=== PATIENT | female | born 1980 | race African-American/Black ===

== ENCOUNTER 2017-11-09 20:02 | Day surgery (SDC) | payer OTHER ==
--- NOTE | 2017-11-09 20:06 | PDOC ---
History of Present Illness - General Stated Complaint: 12 WEEKS BLEEDING Time Seen by Provider: 11/09/17 20:05 - History of Present Illness Initial Comments: 37 year old female [id number] presenting 12 weeks by LMP with vaginal bleeding and lower abdominal pain. States that she was spotting for the last few days and say her ObGyn who told her her it was expected but then she had sudden onset lower abdominal pain and began passing much more blood along with clots. Denies lightheadedness, syncope, chest pain, SOB, visual symptoms, or other complaints. 11/09/17 21:19 Past History - Past Medical History Allergies/Adverse Reactions: Allergies Allergy/AdvReac Type Severity Reaction Status Date / Time No Known Allergies Allergy Verified 05/14/15 00:52 Home Medications: Ambulatory Orders NK [No Known Home Medication] 05/14/15 - Immunization History Immunization Up to Date: Yes - Suicide/Smoking/Psychosocial Hx Smoking History: Current every day smoker Have you smoked in the past 12 months: Yes Number of Cigarettes Smoked Daily: 8 Hx Alcohol Use: No Drug/Substance Use Hx: No Substance Use Type: None Review of Systems - Review of Systems Constitutional: No: Chills, Diaphoresis, Fever, Loss of Appetite HEENTM: No: Blurred Vision, Recent change in vision Respiratory: No: Cough, Shortness of Breath, SOB with Exertion, Productive cough Cardiac (ROS): No: Chest Pain, Irregular Heart Rate, Lightheadedness, Syncope ABD/GI: No: Diarrhea, Nausea, Vomiting : No: Burning, Dysuria, Discharge Musculoskeletal: No: Back Pain, Joint Pain Integumentary: No: Dryness, Erythema, Lesions, Rash Neurological: No: Headache, Numbness Psychiatric: No: Anxiety, Depression Hematologic/Lymphatic: No: Anemia, Blood Clots, Easy Bleeding *Physical Exam - Physical Exam General Appearance: Yes: Nourished, Appropriately Dressed, Apparent Distress, Moderate Distress HEENT: positive: EOMI, BJ, Normal ENT Inspection, Normal Voice Neck: positive: Trachea midline, Normal Thyroid, Supple. negative: Tender, Rigid Respiratory/Chest: positive: Lungs Clear, Normal Breath Sounds. negative: Chest Tender, Respiratory Distress, Accessory Muscle Use Cardiovascular: positive: Regular Rhythm, Regular Rate Female Pelvic Exam: positive: cervical os closed, vaginal bleeding (Left adnexal tenderness, moderate vaginal bleeding, closed cervical os). negative: normal external exam, normal adnexa, CMT, discharge Gastrointestinal/Abdominal: positive: Normal Bowel Sounds, Flat, Soft. negative : Tender Musculoskeletal: positive: Normal Inspection. negative: Decreased Range of Motion Extremity: positive: Normal Capillary Refill, Normal Inspection, Normal Range of Motion. negative: Tender Integumentary: positive: Normal Color, Dry, Warm Neurologic: positive: Fully Oriented, Alert, Normal Mood/Affect, Normal Response , Motor Strength /5 ED Treatment Course - LABORATORY CBC & Chemistry Diagram: 11/09/17 20:10 11/09/17 20:10 Medical Decision Making - Medical Decision Making 37 year old female with vaginal bleeding in the setting of 12 w by lmp . Os closed on PE and patient with some moderate left adnexal tenderness. Labs all WNL with BHCG 2500. TVUS demonstrating 1.7 cm heterogeneous material thickening suspicious for retained products. THis overall likely represents spontaneous / miscarriage with questioanble retained POC. Dr. Zhang was consulted and she evaluated the patient, subsequently arranging for D&C. Patient VSS and set to go to OR [facility] possibly. 11/09/17 22:58 *DC/Admit/Observation/Transfer Diagnosis at time of Disposition: Retained products of conception, Spontaneous - Discharge Dispostion Decision to Admit order: Yes - Referrals - Patient Instructions - Post Discharge Activity
--- NOTE | 2017-11-09 20:06 | PDOC ---
Attending Attestation - HPI HPI: 11/09/17 21:15 The patient is a 37 year old female(), 12 weeks with no significant PMH who presents to the emergency department with vaginal bleeding for several days. The patient reports that she was seen at her Doctors offices 2 days ago secondary to experiencing some spotting. She states that she was using panty liners at that time. The patient states that she was at home today when she felt something pop like a possible water breakage. She states that she then experienced some clots expelled when she went to the bathroom. The patient endorses some severe pain with her symptoms. She denies any other symptoms. She denies any fever, chills, nausea, vomiting, diarrhea, constipation, or urinary symptoms. She denies any chest pain, shortness of breath, dizziness or weakness. The patient denies any other complaints. - Physicial Exam PE: 11/09/17 21:15 GENERAL: (+)tearful. Awake, alert, and fully oriented, in no acute distress HEAD: No signs of trauma EYES: PERRLA, EOMI, sclera anicteric, conjunctiva clear ENT: Auricles normal inspection, hearing grossly normal, nares patent, oropharynx clear without exudates. Moist mucosa NECK: Normal ROM, supple, no lymphadenopathy, JVD, or masses LUNGS: Breath sounds equal, clear to auscultation bilaterally. No wheezes, and no crackles HEART: Regular rate and rhythm, normal S1 and S2, no murmurs, rubs or gallops ABDOMEN: Soft, nontender, normoactive bowel sounds. No guarding, no rebound. No masses EXTREMITIES: Normal range of motion, no edema. No clubbing or cyanosis. No cords, erythema, or tenderness NEUROLOGICAL: Cranial nerves II through XII grossly intact. Normal speech, normal gait SKIN: Warm, Dry, normal turgor, no rashes or lesions noted. Pelvic:mild-moderate vaginal bleeding. Left adnexal tenderness with improvement after exam. Documentation prepared by Anoop Brennan, acting as certified court/medical interpreter for Kristel Hinojosa MD. <Anoop Brennan - Last Filed: 11/09/17 21:15> - Resident Resident Name: Roosevelt Beasley - ED Attending Attestation I have performed the following: I have examined & evaluated the patient, The case was reviewed & discussed with the resident, I agree w/resident's findings & plan - HPI HPI: 11/09/17 20:24 Pt comes with vag bleeding that began today; she had been spotting for several days and using a pantyliner. She is - Medical Decision Making 11/09/17 20:25 Pt will have T+S; labs; transvag sono. IVNSS and morphine for the pain. 11/09/17 21:12 Pt's labs are normal; pt's blood type is pending 11/09/17 22:12 Pt's sono shows blood vs products of conception in the uterus; heterogeneous material. We are still awaiting her CG quantitative. 11/09/17 22:13 Blood type A+ 11/09/17 22:45 hcg 2482; pt will be evaluated by the engineer conductor termite control service representative 11/09/17 23:02 Pt is gong to the OR for a D+C <Kristel Hinojosa - Last Filed: 11/09/17 23:02>
[2017-11-09 20:09] VITALS: BMI 33.7
[2017-11-09] MEDS ORDERED: MORPHINE SULFATE 2 MG/ML VIAL ONE ×2 (20:11→22:59)
[2017-11-09 20:21] LABS: BASO % 1.3 % (0-2.0); EOS % 1.5 % (0-4.5); HEMOGLOBIN 13.1 GM/dL (10.7-15.3); LYMPH % 34.1 % (8-40); MCH 32.4 pg (25.7-33.7); MCHC 34.6 g/dl (32.0-36.0); MEAN CELL VOLUME 93.7 fl (80-96); MEAN PLT VOLUME 7.3 fl (7.5-11.1); MONO % 7.9 % (3.8-10.2); NEUT % 55.2 % (42.8-82.8); PLATELET COUNT 320 K/MM3 (134-434); RBC 4.05 M/mm3 (3.60-5.2); RDW 13.2 % (11.6-15.6); WHITE BLOOD COUNT 10.3 K/mm3 (4.0-10.0)
[2017-11-09] MEDS ORDERED: SODIUM CHLORIDE 0.9% 500 ML INFUS.BAG IV ONE (20:25)
[2017-11-09] MEDS ORDERED: morphine CARPU-JECT 2 MG/1 ML DISP.SYRIN IVPUSH ONE ×2 (20:25→22:58)
[2017-11-09 20:34] LABS: INR 1.04 (0.83-1.09); PROTHROMBIN TIME (PATIENT) 11.7 SEC (9.7-13.0)
[2017-11-09 21:03] LABS: ALBUMIN 3.8 g/dl (3.4-5.0); ALK PHOS 57 U/L (45-117); ANION GAP 10 MMOL/L (8-16); BILIRUBIN,TOTAL 0.3 mg/dL (0.2-1); BLOOD UREA NITROGEN 12 mg/dL (7-18); CALCIUM 9.7 mg/dL (8.5-10.1); CHLORIDE 107 mmol/L (98-107); CO2 21 mmol/L (21-32); CREATININE 0.8 mg/dL (0.55-1.3); GLUCOSE,RANDOM 102 mg/dL (74-106); POTASSIUM 4.1 mmol/L (3.5-5.1); SGOT/AST 13 U/L (15-37); SGPT/ALT 25 U/L (13-61); SODIUM 138 mmol/L (136-145); TOT PROT 7.4 g/dl (6.4-8.2)
--- NOTE | 2017-11-09 23:53 | CON.OBG ---
Consult Consult Specialty:: GRAIN SHIPPER Reason for Consultation:: Vaginal bleeding - History of Present Illness Chief Complaint: Abdominal pain / Vaginal bleeding History of Present Illness: 37 yo Para 1 LMP 10/02/17, presents to ER c/o severe abdominal pain associated with vaginal bleeding. She had a sonogram done that failed to see a gestational sac but there was evidence of a thick endometrium. I came to see patient, she was in severe discomfort. She's was lying on a pad full of bright red blood. - History Source History Provided By: Patient Limitations to Obtaining History: No Limitations - Past Medical History ...LMP: 10/02/17 ...: Yes ...Para: 1 - Past Surgical History Past Surgical History: Yes: None - Alcohol/Substance Use Hx Alcohol Use: No - Smoking History Smoking history: Current every day smoker Have you smoked in the past 12 months: Yes Aproximately how many cigarettes per day: 8 Home Medications - Allergies Allergies/Adverse Reactions: Allergies Allergy/AdvReac Type Severity Reaction Status Date / Time No Known Allergies Allergy Verified 05/14/15 00:52 - Home Medications Home Medications: Ambulatory Orders NK [No Known Home Medication] 05/14/15 Family Disease History - Family Disease History Family History: Unremarkable Review of Systems - Review of Systems Eyes: reports: No Symptoms HENT: reports: No Symptoms Neck: reports: No Symptoms Cardiovascular: reports: No Symptoms Respiratory: reports: No Symptoms Gastrointestinal: reports: Abdominal Pain Genitourinary: reports: Pain, Vaginal Bleeding Breasts: reports: No Symptoms Reported Musculoskeletal: reports: No Symptoms Neurological: reports: No Symptoms Psychiatric: reports: No Symptoms Pain Intensity: 8 Physical Exam-GRAIN SHIPPER Vital Signs: Vital Signs Temperature 98.2 F 11/09/17 23:38 Pulse Rate 76 11/09/17 23:38 Respiratory Rate 18 11/09/17 23:38 Blood Pressure 109/65 11/09/17 23:38 O2 Sat by Pulse Oximetry (%) 98 11/09/17 23:38 Constitutional: Yes: Moderate Distress Eyes: Yes: Conjunctiva Clear HENT: Yes: Atraumatic Neck: Yes: Supple Cardiovascular: Yes: Regular Rate and Rhythm Respiratory: Yes: Regular Gastrointestinal: Yes: Normal Bowel Sounds Vaginal Exam: Yes: Bleeding Cervix: Yes: Bleeding, Other (Os closed) Extremities: Yes: WNL Neurological: Yes: Alert, Oriented ...Motor Strength: WNL Psychiatric: Yes: Alert, Oriented Labs: CBC, BMP 11/09/17 20:10 11/09/17 20:10 Assessment/Plan Vaginal bleeding in Incomplete Pre op for suction D&C Consent signed Anesthesia to see patient
[2017-11-10] MEDS ORDERED: PROPOFOL 20 ML ONE ×2 (00:11→00:40)
[2017-11-10] MEDS ORDERED: SUCCINYLCHOLINE CHLORIDE 200 MG/10 ML VIAL ONE (00:11)
[2017-11-10] MEDS ORDERED: ceFAZolin SODIUM 1 GM VIAL ONE (00:27)
[2017-11-10] MEDS ORDERED: ceFAZolin SODIUM 1 GM VIAL IVPB ONE (00:28)
[2017-11-10] MEDS ORDERED: LACTATED RINGERS SOLUTION 1,000 ML/1,000 ML INFUS.BAG IV SCH (00:45)
[2017-11-10] MEDS ORDERED: KETOROLAC TROMETHAMINE 30 MG/1 ML VIAL IVPUSH ONE (00:47)
[2017-11-10] MEDS ORDERED: ACETAMINOPHEN 1000 MG/100 ML VIAL (NON FORMULARY) IVPB ONE (00:47)
[2017-11-10] MEDS ORDERED: LACTATED RINGERS SOLUTION 1,000 ML IV SCH (01:00)
[2017-11-10 01:34] VITALS: BP 132/59; PULSE 72; TEMP 98.4
--- NOTE | 2017-11-10 13:17 | OP ---
DATE OF OPERATION: 11/10/2017 PREOPERATIVE DIAGNOSIS: Incomplete . POSTOPERATIVE DIAGNOSIS: Incomplete . PROCEDURE: Suction dilatation and curettage. SURGEON: Yamileth Zhang MD ANESTHESIA: General. COMPLICATIONS: None. ESTIMATED BLOOD LOSS: 20 mL. DESCRIPTION OF PROCEDURE: Patient was taken to the operating room, where general anesthesia was administered. Patient was then placed in lithotomy position. She was then prepped and draped in proper sterile fashion. A weighted speculum was placed in the vagina. The anterior lip of the cervix was grasped with a single-tooth tenaculum. Then, an 8-mm suction curette was then gently introduced into the uterine cavity. The suction curette was then rotated to clear the uterus of all products of conception. A sharp curettage was then performed. Then, the suction curette was then reintroduced to clear the uterus of all remaining products of conception. Patient tolerated the procedure well. Patient was then taken to PACU in stable condition. PATHOLOGY: Products of conception. YAMILETH ZHANG M.D. SKINNY/[id number]
== END 2017-11-10 02:05 | disposition home or self-care (01) ==
LOC: JER 20:02 → JASUSAT 22:53 → J3W 11-10 01:52 → JASUSAT 11-10 02:05
PROVIDERS: ATTEND Obstetrics & Gynecology
PROC: 10D17ZZ Extraction of Products of Conception, Retained, Via Natural or Artificial Opening (ICD-10-PCS; principal; 2017-11-09)
DX: O03.4 Incomplete spontaneous abortion without complication (principal)
CPT/HCPCS: 36415; 76817-TC; 80053; 84702; 85025; 85610; 85730; 86850; 86900; 86901; 88305-TC; 94760; 99283-25; J0131